=== PATIENT | female | born 1975 | race African-American/Black ===

== ENCOUNTER 2016-10-22 15:37 | Emergency (ER) | payer MEDICAID ==
[~2016-10-22] VITALS: Ht 162.6 cm; Wt 77.1 kg
[2016-10-22 15:46] VITALS: BP 111/72
[2016-10-22] MEDS ORDERED: methylPREDNISolone SOD SUCC 125 MG/2 ML VL IM ONE (16:00)
[2016-10-22] MEDS ORDERED: IPRATROPIUM BROM 0.5 MG/2.5ML INH SOL NEB ONE (16:00)
[2016-10-22] MEDS ORDERED: ALBUTEROL SULF 2.5 MG/0.5ML(0.5%) NEB SOLN NEB ONE (16:00)
== END 2016-10-22 17:45 | disposition home or self-care (01) ==
LOC: EDBD 15:37 → ER 15:42
DX: J45.901 Unspecified asthma with (acute) exacerbation (principal); F17.210 Nicotine dependence, cigarettes, uncomplicated; Z76.0 Encounter for issue of repeat prescription
CPT/HCPCS: 71010; 94644; 96372; 99285; J2930; 93005

== ENCOUNTER 2024-11-23 22:52 | Inpatient (IN) | payer MEDICAID ==
[~2024-11-23] VITALS: Ht 162.6 cm; Wt 82.9 kg
[~2024-11-23 22:52] MED LIST: ALBU108A5 IN; PRED20TA2 PO
--- NOTE | 2024-11-23 23:11 | ED.PDOC ---
GI ASSESSMENT HPI Comments 49 year old female came to ER via EMS for abdominal pain. Patient denies any history of abdominal surgeries, has regular bowel movements, last bowel movement today. Patient felt that she can still pass more stools so she took 5 laxative pills, and shortly afterwards she started having diffuse abdominal cramping pain with nausea. Chief Complaint: Abdominal Pain Time Seen by MD: 23:10 Primary Care Provider: RAQUEL Lee Notes: Emt/Paramedic Notes Allergies: Coded Allergies: NO KNOWN ALLERGIES (Unverified , 04/30/16) Home Meds Active Scripts Prednisone (Prednisone) 20 Mg Tab, 3 TAB PO DAILY for 4 Days, #12 TAB Prov:SAURAV YA MD 05/17/24 Albuterol Sulfate (Albuterol Sulfate Hfa) 108 Mcg/Act Aer, 2 PUFF IN Q6HP PRN, #1 AER Prov:SAURAV YA MD 05/17/24 Information Source: Patient, Emergency Med Personnel Mode of Arrival: EMS Timing: Minutes Duration: Since onset Prehospital treatment: None Quality: Cramping Vomitus: None Stool: Normal Severity: Moderate Recent: Other (intake of laxatives) Pain Location: Diffuse Modifying Factors: Nothing Associated sign and symptoms: Nausea, Abdominal Pain Past Medical History PAST MEDICAL HISTORY: Asthma Surgical History: Denies all surgeries SCRAP KETTLE TENDER History: No Pertinent SCRAP KETTLE TENDER History Family History Family History: Reviewed,noncontributory to illness Social History Smoker: Non-Smoker Alcohol: Denies ETOH Use Drugs: Denies Drug Use Lives In: Home Constitutional: denies: chills, diaphoresis, fatigue, fever, malaise, sweats, weakness, others EENTM: denies: blurred vision, double vision, ear bleeding, ear discharge, ear drainage, ear pain, ear ringing, eye pain, eye redness, hearing loss, mouth pain, mouth swelling, nasal discharge, nose bleeding, nose congestion, nose pain, photophobia, tearing, throat pain, throat swelling, voice changes, others Respiratory: denies: cough, hemoptysis, orthopnea, SOB at rest, shortness of breath, SOB with excertion, stridor, wheezing, others Cardiovascular: denies: chest pain, dizzy spells, diaphoresis, Dyspnea on exertion, edema, irregular heart beat, left arm pain, lightheadedness, palpitations, PND, syncope, others Gastrointestinal: reports: abdominal pain, nausea; denies: abdomen distended, blood streaked bowels, constipated, diarrhea, dysphagia, difficulty swallowing, hematemesis, melena, poor appetite, poor fluid intake, rectal bleeding, rectal pain, vomiting, others Genitourinary: denies: abnormal vagina bleeding, burning, dyspareunia, dysuria, flank pain, frequency, hematuria, incontinence, pain, , vagina discharge, urgency, others Neurological: denies: dizziness, fainting, headache, left sided numbness, left sided weakness, numbness, paresthesia, pre-existing deficit, right sided numbness, right sided weakness, seizure, speech problems, tingling, tremors, weakness, others Musculoskeletal: denies: back pain, gout, joint pain, joint swelling, muscle pain, muscle stiffness, neck pain, others Integumetry: denies: bruises, change in color, change in hair/nails, dryness, laceration, lesions, lumps, rash, wounds, others Allergic/Immunocompromised: denies: Difficulty Healing, Frequent Infections, Hives, Itching, others Hematologic/Lymphatic: denies: anemia, blood clots, easy bleeding, easy br uising, swollen glands, others Endocrine: denies: excessive hunger, excessive sweating, excessive thirst, excessive urination, flushing, intolerance to cold, intolerance to heat, unexplained weight gain, unexplained weight loss, others Psychiatric: denies: anxiety, bipolar disorder, depression, hopeless, panic disorder, schizophrenia, sleepless, suicidal, others Physical Exam General Appearance: No Apparent Distress, Normal HEENT: Normal ENT Inspection, Pharynx Normal, TMs Normal Neck: Full Range of Motion, Non-Tender, Normal, Normal Inspection Respiratory: Chest Non-Tender, Lungs Clear, No Accessory Muscle Use, No R espiratory Distress, Normal Breath Sounds Cardiovascular: No Edema, No JVD, No Murmur, No Gallop, Normal Peripheral Pulses, Regular Rate/Rhythm Breast Exam: Deferred Gastrointestinal: Diffuse, No Organomegaly, No Pulsatile Mass, Normal Bowel Sounds, Soft, Tenderness, Other (negative guarding) Genitalia: Deferred Pelvic: Deferred Rectal: Deferred Extremities: No calf tenderness, Normal capillary refill, Normal inspection, Normal range of motion, Non-tender, No pedal edema Musculoskeletal : Apperance: Normal Neurologic: Alert, telephone order clerk II-XII nml as Tested, No Motor Deficits, Normal Affect, Normal Mood, No Sensory Deficits Cerebellar Function: Normal Reflexes: Normal Skin: Dry, Normal Color, Warm Lymphatic: No Adenopathy Was a procedure done? Was a procedure done?: No GI differential Dx Differential Diagnosis: Appendicitis, Complete , Incomplete , Inevitable , Missed , Threatened , Abruptio placentae, Bowel Obstruction, Cholangitis, Cholecystitis, Constipation, Diverticular disease, Dysmenorrhea, Ectopic , Gastritis/PUD, Gastroenteritis, Hernia, Hepatitis, Inflammatory BD, Ischemic Bowel, Ovarian cyst/torsion, Pancre atitis, PID, UTI, Urolithiasis, Dehydration, Diabetes/ DKA, Electrolyte Imbalance, Food Poisoning, , Impaction, Malnutrition, Ischemic Bowel, Stress Ulcer, Kidney Stone X-Ray, Labs, Meds, VS Vital Signs Date Time Temp Pulse Resp B/P (MAP) Pulse Ox O2 Delivery O2 Flow Rate FiO2 11/23/24 23:03 98.0 75 24 132/76 (94) 98 98.0 Lab Test 11/23/24 23:12 Range/Units White Blood Count 8.2 4.4-10.8 10^3/uL Red Blood Count 4.40 4.0-5.20 10^6/uL Hemoglobin 14.3 12.2-16.2 g/dL Hematocrit 42.7 36.0-46.0 % Mean Corpuscular Volume 97.2 80.0-100.0 fL Mean Corpuscular Hemoglobin 32.5 H 28.0-32.0 pg Mean Corpuscular Hemoglobin Concent 33.5 32.0-36.0 g/dL Red Cell Distribution Width 12.2 11.8-14.3 % Platelet Count 272 140-450 10^3/uL Mean Platelet Volume 9.2 6.9-10.8 fL Neutrophils (%) (Auto) 75.8 37.0-80.0 % Lymphocytes (%) (Auto) 17.0 10.0-50.0 % Monocytes (%) (Auto) 6.4 0.0-12.0 % Eosinophils (%) (Auto) 0.4 0.0-7.0 % Basophils (%) (Auto) 0.4 0.0-2.0 % Neutrophils # (Auto) 6.2 1.6-8.6 10 ^3/uL Lymphocytes # (Auto) 1.4 0.4-5.4 10 ^3/uL Monocytes # (Auto) 0.5 0-1.3 10 ^3/uL Eosinophils # (Auto) 0 0-0.8 10 ^3/uL Basophils # (Auto) 0 0-0.2 10 ^3/uL Nucleated Red Blood Cells 0.0 % Sodium Level 140 136-145 mmol/L Potassium Level 3.6 3.5-5.1 mmol/L Chloride Level 107 98-107 mmol/L Carbon Dioxide Level 23 20-31 mmol/L Anion Gap 10 5-15 Blood Urea Nitrogen 9 9-23 mg/dL Creatinine 0.94 0.550-1.02 mg/dL Glomerular Filtration Rate Calc 75 >90 mL/min BUN/Creatinine Ratio 9.6 L 10.0-20.0 Serum Glucose 118 H 74-106 mg/dL Calcium Level 10.1 8.7-10.4 mg/dL Total Bilirubin 0.7 0.2-1.0 mg/dL Aspartate Amino Transferase (AST) 15 13-40 U/L Alanine Aminotransferase (ALT) 16 7-40 U/L Alkaline Phosphatase 65 46-116 U/L Total Protein 7.3 5.7-8.2 g/dL Albumin 4.6 3.2-4.8 g/dL Lipase 37 12-53 U/L Beta HCG, Quantitative 1.0 L 1.5-4.2 mIU/mL Exam: CT CT AB PEL WO CON-NO ORAL OR IV History: pain Comparison Study: None Technique: Multidetector spiral CT of the abdomen was performed from lung bases to pubic symphysis. Imaging was performed without IV contrast. Axial, coronal and sagittal multiplanar reformats were obtained from the axial data set by the technologist. Radiation Dose : 1. Abdomen/Pelvis: CTDIvol 12.30 mGy, DLP 660.72 mGy*cm. Findings: Evaluation of solid organs is limited due to lack of intravenous contrast use. Lung Bases: No acute or significant lung base finding. Normal heart size. No pleural or pericardial effusion. Liver: The liver is normal in size. No focal lesions. Gallbladder and Biliary Tree: Unremarkable Spleen: Unremarkable Pancreas: The pancreas is grossly normal in appearance. Adrenal Glands: Unremarkable Kidneys: Kidneys are grossly normal without calculi or hydronephrosis. Bladder: Grossly unremarkable for degree of distention. Bowel: The stomach is grossly normal in appearance. Small bowel is normal in caliber and distribution. Moderate dilatation of gas-filled proximal colon to the level of the midportion of the transverse colon. There is moderate circumferential intramural edema and wall thickening of the distal transverse colon to the level of the splenic flexure. The appendix is normal. Ascites: Absent Lymphadenopathy: No mesenteric, retroperitoneal or periportal lymphadenopathy. Abdominal Wall and Mesentery: Unremarkable. Vasculature: The visualized abdominal aorta is normal in size and caliber. Atherosclerotic vascular calcifications are noted. Evaluation of abdominal and pelvic vessels is limited due to lack of intravenous contrast. Pelvic Organs: Unremarkable. Trace likely physiologic pelvic cul-de-sac free fluid. Musculoskeletal: No aggressive focal bony lesions, acute fractures or dislocation. IMPRESSION: 1. Increased intramural thickening and edema of the distal transverse colon to the level of the splenic flexure, consistent with colitis. Radiation optimization: All CT scans at this facility use at least one of these dose optimization techniques: automated exposure control mA and/or kV adjustment per patient size (includes targeted exams where dose is matched to clinical indication) or iterative reconstruction. Time of 1ST Reevaluation: 23:02 Reevaluation 1ST: Unchanged Time of 2ND Reevaluation: 01:04 Reevaluation 2ND: Unchanged Patient Education/Counseling: Diagnosis, Treatment, Prognosis, Need For Follow Up Family Education/Counseling: No Family Present Additional Information -Reviewed patient's previous visit(s): ED physicians notes on 10/22/2016 and 05/17/2024 - The following tests were ordered, and results were reviewed by me: - Additional information was gathered from interviewing the following independe nt Historian: - I reviewed and agreed with the following test results read by other provider: - I discussed treatments and results with medical personnel and: patient Comprehensive systems review obtained and negative except for what is stated in the HPI. Departure 1 Departure Time of Disposition: 01:06 Impression: Primary Impression: Abdominal pain Qualified Codes: R10.84 - Generalized abdominal pain Additional Impression: Colitis Disposition: ADMITTED INPATIENT Admit to: Med Surg Condition: Stable Discharged With: Self Critical Care Note Critical Care Time?: Yes (55 min-critical care time only) Critical care comment: due to concerns for patient's condition deteriorating, the care required my highest level of attention and readiness to intervene. i assessed the patient's condition, ordered the proper tests and treatments, reassessed for response and reviewed the results. i communicated with medical personnel and formulated a plan of care. total critical care time does not include any procedures Stability Stability form required: No Heart Score Heart Score: Heart Score Response (Comments) Value History N/A 0 EKG N/A 0 Age N/A 0 Risk Factors N/A 0 Troponin N/A 0 Total 0 I personally scribed for CHRISTINE DOW MD ([email or web address]) on 11/23/24 at 23:11. Electronically submitted by Shaun Greene ([email or web address]). I personally scribed for CHRISTINE DOW MD ([email or web address]) on 11/24/24 at 00:24. Electronically submitted by Shaun Greene ([email or web address]). CHRISTINE DOW MD Nov 23, 2024 23:11
[2024-11-23 23:35] LABS: Basophils # (auto) 0 10 ^3/uL (0-0.2); Basophils % (auto) 0.4 % (0.0-2.0); Eosinophils # (auto) 0 10 ^3/uL (0-0.8); Eosinophils % (auto) 0.4 % (0.0-7.0); Hematocrit 42.7 % (36.0-46.0); Hemoglobin 14.3 g/dL (12.2-16.2); Lymphocytes # (auto) 1.4 10 ^3/uL (0.4-5.4); Mean Corpuscular Hemoglobin 32.5 pg (28.0-32.0); Mean Corpuscular Hgb Conc. 33.5 g/dL (32.0-36.0); Mean Corpuscular Volume 97.2 fL (80.0-100.0); Monocytes # (auto) 0.5 10 ^3/uL (0-1.3); Monocytes % (auto) 6.4 % (0.0-12.0); Neutrophils # (auto) 6.2 10 ^3/uL (1.6-8.6); Neutrophils % (auto) 75.8 % (37.0-80.0); Platelet Count (auto) 272 10^3/uL (140-450); Red Cell Distribution Width 12.2 % (11.8-14.3); White Blood Cell 8.2 10^3/uL (4.4-10.8)
[2024-11-23 23:59] LABS: Alanine Aminotransferase 16 U/L (7-40); Albumin 4.6 g/dL (3.2-4.8); Alkaline Phosphatase 65 U/L (46-116); Anion Gap 10 (5-15); Aspartate Aminotransferase 15 U/L (13-40); BUN/Creatinine Ratio 9.6 (10.0-20.0); Bilirubin, Total 0.7 mg/dL (0.2-1.0); Blood Urea Nitrogen 9 mg/dL (9-23); Calcium 10.1 mg/dL (8.7-10.4); Carbon Dioxide 23 mmol/L (20-31); Lipase 37 U/L (12-53); Potassium 3.6 mmol/L (3.5-5.1); Sodium 140 mmol/L (136-145); Total Protein 7.3 g/dL (5.7-8.2)
[2024-11-24] VITALS (7 sets, daily range): BP systolic 98–111; BP diastolic 47–61; PULSE 60–68; RESP 17–20; TEMP 98.1–98.3; O2SAT 97–100
--- NOTE | 2024-11-24 00:04 | DVH ---
Exam: CT CT AB PEL WO CON-NO ORAL OR IV History: pain Comparison Study: None Technique: Multidetector spiral CT of the abdomen was performed from lung bases to pubic symphysis. I maging was performed without IV contrast. Axial, coronal and sagittal multiplanar reformats were obta ined from the axial data set by the technologist. Radiation Dose : 1. Abdomen/Pelvis: CTDIvol 12.30 mGy, DLP 660.72 mGy*cm. Findings: Evaluation of solid organs is limited due to lack of intravenous contrast use. Lung Bases: No acute or significant lung base finding. Normal heart size. No pleural or pericardial effusion. Liver: The liver is normal in size. No focal lesions. Gallbladder and Biliary Tree: Unremarkable Spleen: Unremarkable Pancreas: The pancreas is grossly normal in appearance. Adrenal Glands: Unremarkable Kidneys: Kidneys are grossly normal without calculi or hydronephrosis. Bladder: Grossly unremarkable for degree of distention. Bowel: The stomach is grossly normal in appearance. Small bowel is normal in caliber and distribution . Moderate dilatation of gas-filled proximal colon to the level of the midportion of the transverse c olon. There is moderate circumferential intramural edema and wall thickening of the distal transverse colon to the level of the splenic flexure. The appendix is normal. Ascites: Absent Lymphadenopathy: No mesenteric, retroperitoneal or periportal lymphadenopathy. Abdominal Wall and Mesentery: Unremarkable. Vasculature: The visualized abdominal aorta is normal in size and caliber. Atherosclerotic vascular c alcifications are noted. Evaluation of abdominal and pelvic vessels is limited due to lack of intrav enous contrast. Pelvic Organs: Unremarkable. Trace likely physiologic pelvic cul-de-sac free fluid. Musculoskeletal: No aggressive focal bony lesions, acute fractures or dislocation. IMPRESSION: 1. Increased intramural thickening and edema of the distal transverse colon to the level of the splen ic flexure, consistent with colitis. Radiation optimization: All CT scans at this facility use at least one of these dose optimization marilyn hniques: automated exposure control mA and/or kV adjustment per patient size (includes targeted exam s where dose is matched to clinical indication) or iterative reconstruction.
[2024-11-24 00:09] LABS: Chloride 107 mmol/L (98-107); Glucose 118 mg/dL (74-106)
[2024-11-24] MEDS ORDERED: ONDANSETRON HCL 4 MG/2 ML VIAL IV PRN (01:30)
[2024-11-24] MEDS ORDERED: MORPHINE SULFATE INJ 2 MG/ml SYRG IV PRN (01:30)
[2024-11-24] MEDS: SODIUM CHLORIDE 0.9% 1,000 ML IV SCH (01:30)
--- NOTE | 2024-11-24 01:36 | DVHHP2 ---
Admitting Diagnosis: Acute Colitis, Abdominal pain History of Present Illness History Source: Patient Exam Limitations: No limitations HPI Mrs. Kiran Beach is a 49 year old female who presents with a chief complaint of abdominal pain. Patient denies any history of abdominal surgeries, has regular bowel movements, last bowel movement today. Patient felt that she can still pass more stools so she took 5 laxative pills, and shortly afterwards she started having diffuse abdominal cramping pain with nausea. Patient admitted for further evaluation. Home Meds Active Scripts Prednisone (Prednisone) 20 Mg Tab, 3 TAB PO DAILY for 4 Days, #12 TAB Prov:SAURAV YA MD 05/17/24 Albuterol Sulfate (Albuterol Sulfate Hfa) 108 Mcg/Act Aer, 2 PUFF IN Q6HP PRN, #1 AER Prov:SAURAV YA MD 05/17/24 Reported Medications Albuterol Sulfate (Albuterol Sulfate) 0.083 % Neb, 3 ML QID PRN for wheezing 11/24/24 Past Medical History Cardiac: No pertinent Hx Pulmonary: Asthma Central Nervous System: No pertinent Hx GI: No pertinent Hx Hemotology/Oncology: No pertinent Hx Hepatobiliary: No pertinent Hx Psychiatric: No pertinent Hx Musculoskeletal: No pertinent Hx Rheumotologic: No pertinent Hx Infectious Disease: No peritnent Hx ENT: No pertinent Hx Renal/: No pertinent Hx Endocrine: No pertinent Hx Dermatology: No pertinent Hx Review of Systems Constitutional: No symptom reported Ears, Nose, & Throat: No symptom reported Eyes: No symptom reported Pulmonary/Respiratory: No symptom reported Cardiovascular: No symptom reported Gastrointestinal: Abdominal Pain Genitourinary: No symptom reported Musculoskeletal: No symptom reported Skin: No symptom reported Psychiatric: No symptom reported Endocrine: No symptom reported Hemotologic/Lymphatic: No symptom reported H&P Exam Vital Signs Vital Signs Date Time Temp Pulse Resp B/P (MAP) Pulse Ox O2 Delivery O2 Flow Rate FiO2 11/23/24 23:03 98.0 75 24 132/76 (94) 98 98.0 General Appeara: Well developed, Well nourished, Normal Appearance Head Exam: Normal inspection Neck Exam: Normal inspection, Non-tender, Normal alignment Eye Exam: bilateral eye Normal inspection, bilateral eye PERRL, bilateral eye EOMI Ear Exam: bilateral ear Auricle normal Nasal Exam: Normal inspection Mouth: Normal Inspection Pulmonary/Respiratory: Normal inspection, Normal breath sounds, Chest non- tender, Lungs clear Cardiovascular/Chest: Normal inspection, Regular rate, Normal Rhythm Peripheral Pulses: 2+ dorsalis pedis (R), 2+ dorsalis pedis (L), 2+ Radial (R), 2+ Radial (L) Abdominal Exam: Normal bowel sounds, Soft, No tenderness Abdominal Pain Onset Location: Generalized abdomen Rectal Exam: Deferred QUALITY CONTROL TESTER Exam: Normal hearing, Normal speech, PERRL Neuro/Mental St: Alert, Oriented Appearance: Appropriate appearance, Appropriate insight Eye contact/ Speech: Cooperative, Good eye contact, Normal speech Thoughts/Psych: Normal thought pattern Skin Exam: Normal inspection, Normal color, Warm/dry Labs/Xrays Labs Test 11/23/24 23:12 Range/Units White Blood Count 8.2 4.4-10.8 10^3/uL Red Blood Count 4.40 4.0-5.20 10^6/uL Hemoglobin 14.3 12.2-16.2 g/dL Hematocrit 42.7 36.0-46.0 % Mean Corpuscular Volume 97.2 80.0-100.0 fL Mean Corpuscular Hemoglobin 32.5 H 28.0-32.0 pg Mean Corpuscular Hemoglobin Concent 33.5 32.0-36.0 g/dL Red Cell Distribution Width 12.2 11.8-14.3 % Platelet Count 272 140-450 10^3/uL Mean Platelet Volume 9.2 6.9-10.8 fL Neutrophils (%) (Auto) 75.8 37.0-80.0 % Lymphocytes (%) (Auto) 17.0 10.0-50.0 % Monocytes (%) (Auto) 6.4 0.0-12.0 % Eosinophils (%) (Auto) 0.4 0.0-7.0 % Basophils (%) (Auto) 0.4 0.0-2.0 % Neutrophils # (Auto) 6.2 1.6-8.6 10 ^3/uL Lymphocytes # (Auto) 1.4 0.4-5.4 10 ^3/uL Monocytes # (Auto) 0.5 0-1.3 10 ^3/uL Eosinophils # (Auto) 0 0-0.8 10 ^3/uL Basophils # (Auto) 0 0-0.2 10 ^3/uL Nucleated Red Blood Cells 0.0 % Sodium Level 140 136-145 mmol/L Potassium Level 3.6 3.5-5.1 mmol/L Chloride Level 107 98-107 mmol/L Carbon Dioxide Level 23 20-31 mmol/L Anion Gap 10 5-15 Blood Urea Nitrogen 9 9-23 mg/dL Creatinine 0.94 0.550-1.02 mg/dL Glomerular Filtration Rate Calc 75 >90 mL/min BUN/Creatinine Ratio 9.6 L 10.0-20.0 Serum Glucose 118 H 74-106 mg/dL Calcium Level 10.1 8.7-10.4 mg/dL Total Bilirubin 0.7 0.2-1.0 mg/dL Aspartate Amino Transferase (AST) 15 13-40 U/L Alanine Aminotransferase (ALT) 16 7-40 U/L Alkaline Phosphatase 65 46-116 U/L Total Protein 7.3 5.7-8.2 g/dL Albumin 4.6 3.2-4.8 g/dL Lipase 37 12-53 U/L Beta HCG, Quantitative 1.0 L 1.5-4.2 mIU/mL Assessment/Plan Problem List: (1) Colitis (2) Abdominal pain Plan This is a 49 year old female with known history of asthma who presents with abdominal pain. Patient found to have 1. Acute Colitis 2. Abdominal Pain 3. Hx of asthma plan Admit Med Surgical unit Gastroenterology consultation IV antibiotics IV fluids NPO Antiemetics/analgesics as needed Discussed all above with patient who verbalizes agreement and understanding of care plan. All questions were answered. Discussed with supervising MD. Plan discussed with: Patient, Other Code Visit Code Visit Total Time (mins): 45 Additional Comments Additional Comments Additional Comments 49-year-old female with a known history of asthma presented to the hospital with the abdominal pain found to have 1. Acute transverse colon colitis 2. Abdominal pain secondary to 1. 3. Chronic asthma -clear liquid diet, IV antibiotics, GI consultation. GATO DIEZ Nov 24, 2024 01:36 SHYANNE ALATORRE MD Nov 24, 2024 15:00
[2024-11-24] MEDS: fentaNYL CITRATE 100 MCG/2 ML VL IV ONE (01:55)
[2024-11-24] MEDS: ONDANSETRON HCL 4 MG/2 ML VIAL IV ONE (01:55)
[2024-11-24] MEDS: SODIUM CHLORIDE 0.9% 1,000 ML IV ONE (01:56)
[2024-11-24] MEDS: levoFLOXacin 500MG 100 ML IV ONE (02:18)
[2024-11-24 02:26] LABS: Urine Bacteria MANY /hpf (None Seen); Urine Blood TRACE /uL (Negative); Urine Clarity Turbid (Clear); Urine Color Light-Yellow (Yellow); Urine Hyaline Cast FEW /lpf (0 - 2); Urine Mucus FEW (None Seen); Urine Protein, UAD Negative (Negative); Urine Specific Gravity 1.019 (1.001-1.035); Urine Squamous Epithelial Cell FEW /hpf (<5); Urine Urobilinogen Normal (Negative); Urine WBC 78 /HPF (0-5)
[2024-11-24] MEDS ORDERED: ALBU0.08 (05:28)
[2024-11-24] MEDS: metroNIDAZOLE 500MG/100ML 100 ML IV SCH (05:29)
[2024-11-24] MEDS: ENOXAPARIN SOD 40 MG/0.4 ML SYRINGE SC SCH (09:23)
[2024-11-24] MEDS: PANTOPRAZOLE 40 MG/10 ML VIAL INJ IV SCH (09:23)
[2024-11-24] MEDS: HYDROcodone-ACET 5/325MG TAB PO PRN (09:25)
[2024-11-24] MEDS ORDERED: levoFLOXacin 500MG 100 ML IV SCH (10:00)
[2024-11-24 11:57] LABS: Basophils # (auto) 0.1 10 ^3/uL (0-0.2); Basophils % (auto) 0.8 % (0.0-2.0); Eosinophils # (auto) 0.1 10 ^3/uL (0-0.8); Eosinophils % (auto) 1.2 % (0.0-7.0); Hematocrit 39.4 % (36.0-46.0); Hemoglobin 13.1 g/dL (12.2-16.2); Lymphocytes # (auto) 2.4 10 ^3/uL (0.4-5.4); Lymphocytes % (auto) 35.8 % (10.0-50.0); Mean Corpuscular Hemoglobin 32.6 pg (28.0-32.0); Mean Corpuscular Hgb Conc. 33.4 g/dL (32.0-36.0); Mean Corpuscular Volume 97.6 fL (80.0-100.0); Monocytes # (auto) 0.5 10 ^3/uL (0-1.3); Neutrophils # (auto) 3.7 10 ^3/uL (1.6-8.6); Neutrophils % (auto) 54.2 % (37.0-80.0); Nucleated Red Blood Cells % 0.1 %; Platelet Count (auto) 257 10^3/uL (140-450); Red Blood Cells 4.03 10^6/uL (4.0-5.20); Red Cell Distribution Width 12.4 % (11.8-14.3); White Blood Cell 6.8 10^3/uL (4.4-10.8)
[2024-11-24 12:04] LABS: Chloride 107 mmol/L (98-107); Sodium 139 mmol/L (136-145)
[2024-11-24 12:05] LABS: Anion Gap 8 (5-15); Carbon Dioxide 24 mmol/L (20-31)
[2024-11-24 12:06] LABS: Calcium 9.1 mg/dL (8.7-10.4); Potassium 3.5 mmol/L (3.5-5.1)
[2024-11-24 12:10] LABS: BUN/Creatinine Ratio 7.8 (10.0-20.0); Glucose 82 mg/dL (74-106)
[2024-11-24 12:14] LABS: Blood Urea Nitrogen 7 mg/dL (9-23)
[2024-11-24] MEDS: POLYETHYLENE GLYCOL 17 GM PWDR PO ONE ×2 (16:08→16:51)
--- NOTE | 2024-11-24 22:07 | DVHINCON2 ---
Date of service: Nov 24, 2024 Referring Physician Jayla Yarbrough Reason for Consultation Abdominal pain possible colitis History of Present Illness Mrs. Kiran Beach is a 49 year old female who presents with a chief complaint of abdominal pain. Patient denies any history of abdominal owen rgeries, has regular bowel movements, last bowel movement yesterday morning. Patient felt that she can still pass more stools so she took 5 laxative pills, and shortly afterwards she started having diffuse abdominal cramping pain with nausea. Patient admitted for further evaluation. Patient is feeling better and abdominal pain is improving. Patient is tolerating a clear liquid diet. She denied any GI bleeding. She has not had any. CT scan was suggestive of mild colitis in the watershed area. She denied any bowel movement or rectal bleeding at this time Family History: Patient reports no known family medical history. Allergies: Coded Allergies: NO KNOWN ALLERGIES (Unverified , 04/30/16) Home Meds Active Scripts Prednisone (Prednisone) 20 Mg Tab, 3 TAB PO DAILY for 4 Days, #12 TAB Prov:SAURAV YA MD 05/17/24 Albuterol Sulfate (Albuterol Sulfate Hfa) 108 Mcg/Act Aer, 2 PUFF IN Q6HP PRN, #1 AER Prov:SAURAV YA MD 05/17/24 Reported Medications Albuterol Sulfate (Albuterol Sulfate) 0.083 % Neb, 3 ML QID PRN for wheezing 11/24/24 Current Medications Current Medications Medications (Trade) Dose Ordered Sig/Forrest Route PRN Reason Start Time Stop Time Status Last Admin Ondansetron HCl (Zofran) 4 mg Q6HPRN PRN IV NAUSEA / VOMITING 11/24/24 01:30 Morphine Sulfate 2 mg Q6HP PRN IV PAIN SCALE 7 THRU 10 11/24/24 01:30 Pantoprazole Sodium (Protonix) 40 mg DAILY IV 11/24/24 10:00 11/24/24 09:23 Acetaminophen (Tylenol Tablet) 650 mg Q6HPRN PRN PO PAIN SCALE 1-3 OR TEMP>100.4 11/24/24 01:30 Acetaminophen/ Hydrocodone Bitart (Milmay 5/325MG Tab) 1 tab Q6HPRN PRN PO PAIN SCALE 1 THRU 6 11/24/24 01:30 11/24/24 16:07 Metronidazole 100 ml @ 100 mls/hr Q8HR IV 11/24/24 06:00 11/24/24 21:16 Levofloxacin/ Dextrose 100 ml @ 100 mls/hr DAILY IV 11/24/24 10:00 11/24/24 01:41 DC Enoxaparin Sodium (Lovenox) 40 mg DAILY SC 11/24/24 10:00 11/24/24 09:23 Sodium Chloride 1,000 ml @ 100 mls/hr Q10H IV 11/24/24 01:30 11/24/24 13:32 Levofloxacin/ Dextrose 100 ml @ 100 mls/hr DAILY IV 11/25/24 10:00 Vital Signs Vital Signs Date Time Temp Pulse Resp B/P (MAP) Pulse Ox O2 Delivery O2 Flow Rate FiO2 11/24/24 20:00 Room Air* 0 21 11/24/24 17:00 98.3 60 18 111/59 (76) 100 98.3 Physical Exam General Appeara: Well developed, Well nourished, Normal Appearance Head Exam: Normal inspection; Neck Exam: Normal inspection, Non-tender, Normal alignment Pulmonary/Respiratory: Normal inspection, Normal breath sounds, Chest non-tende r, Lungs clear Cardiovascular/Chest: Normal inspection, Regular rate, Normal Rhythm Abdominal Exam: Normal bowel sounds, Soft, No tenderness;obese [employer] Exam: Normal hearing, Normal speech, PERRL Neuro/Mental St: Alert, Oriented Labs/Diagnostic Data Labs Test 11/24/24 11:29 11/24/24 01:53 11/24/24 01:40 11/23/24 23:12 Range/Units White Blood Count 6.8 4.4-10.8 10^3/uL Red Blood Count 4.03 4.0-5.20 10^6/uL Hemoglobin 13.1 12.2-16.2 g/dL Hematocrit 39.4 36.0-46.0 % Mean Corpuscular Volume 97.6 80.0-100.0 fL Mean Corpuscular Hemoglobin 32.6 H 28.0-32.0 pg Mean Corpuscular Hemoglobin Concent 33.4 32.0-36.0 g/dL Red Cell Distribution Width 12.4 11.8-14.3 % Platelet Count 257 140-450 10^3/uL Mean Platelet Volume 9.1 6.9-10.8 fL Neutrophils (%) (Auto) 54.2 37.0-80.0 % Lymphocytes (%) (Auto) 35.8 10.0-50.0 % Monocytes (%) (Auto) 8.0 0.0-12.0 % Eosinophils (%) (Auto) 1.2 0.0-7.0 % Basophils (%) (Auto) 0.8 0.0-2.0 % Neutrophils # (Auto) 3.7 1.6-8.6 10 ^3/uL Lymphocytes # (Auto) 2.4 0.4-5.4 10 ^3/uL Monocytes # (Auto) 0.5 0-1.3 10 ^3/uL Eosinophils # (Auto) 0.1 0-0.8 10 ^3/uL Basophils # (Auto) 0.1 0-0.2 10 ^3/uL Nucleated Red Blood Cells 0.1 % Sodium Level 139 136-145 mmol/L Potassium Level 3.5 3.5-5.1 mmol/L Chloride Level 107 98-107 mmol/L Carbon Dioxide Level 24 20-31 mmol/L Anion Gap 8 5-15 Blood Urea Nitrogen 7 L 9-23 mg/dL Creatinine 0.90 0.550-1.02 mg/dL Glomerular Filtration Rate Calc 79 >90 mL/min BUN/Creatinine Ratio 7.8 L 10.0-20.0 Serum Glucose 82 74-106 mg/dL Calcium Level 9.1 8.7-10.4 mg/dL Lactic Acid Level 0.9 0.4-2.0 mmol/L Urine Color Light-yellow Yellow Urine Clarity Turbid H Clear Urine pH 8.0 5.0-9.0 Urine Specific [place] 1.019 1.001-1.035 Urine Protein Negative Negative Urine Ketones Negative Negative Urine Blood Trace H Negative /uL Urine Nitrite Negative Negative Urine Bilirubin Negative Negative Urine Urobilinogen Normal Negative mg/dL Urine Leukocyte Esterase 3+ Negative /uL Urine RBC 8 0 - 4 /hpf Urine Microscopic WBC 78 H 0-5 /HPF Urine Squamous Epithelial Cells Few <5 /hpf Urine Renal Epithelial Cells Few None Seen /hpf Urine Bacteria Many H None Seen /hpf Urine Hyaline Casts Few 0 - 2 /lpf Urine Mucus Few None Seen Urine Glucose Normal Normal mg/dL Total Bilirubin 0.7 0.2-1.0 mg/dL Aspartate Amino Transferase (AST) 15 13-40 U/L Alanine Aminotransferase (ALT) 16 7-40 U/L Alkaline Phosphatase 65 46-116 U/L Total Protein 7.3 5.7-8.2 g/dL Albumin 4.6 3.2-4.8 g/dL Lipase 37 12-53 U/L Beta HCG, Quantitative 1.0 L 1.5-4.2 mIU/mL CY SCAN ABD PELVIS IMPRESSION: 1. Increased intramural thickening and edema of the distal transverse colon to the level of the splenic flexure, consistent with colitis. Problems(with codes): (1) UTI (urinary tract infection) (2) Abdominal pain (3) Colitis Plan/Recommendation Plan Check urine bacterial culture Continue IV antibiotics for UTI Abnormal finding CT abdomen likely related to mild ischemic colitis of the watershed area There was no clinical symptoms of diarrhea or rectal bleeding at this time Advance diet as tolerated Patient is getting a dose of MiraLax She can be maintained on stool softeners She was advised to follow up in my office as an outpatient for elective colon oscopy Once again thank you for allowing me to participate in the care of this patient Plan discussed with: Patient, Other (Nurse) DAVID DENNIS MD Nov 24, 2024 22:07
[2024-11-25 01:00] VITALS: BP 99/50; PULSE 61; RESP 19; TEMP 98.4; O2SAT 96
[2024-11-25 05:00] VITALS: BP 97/49; PULSE 74; RESP 20; TEMP 98.3; O2SAT 99
[2024-11-25] MEDS: ACETAMINOPHEN 325 MG TAB PO PRN (05:07)
[2024-11-25 06:13] LABS: Anion Gap 7 (5-15); Calcium 8.9 mg/dL (8.7-10.4); Carbon Dioxide 22 mmol/L (20-31); Potassium 3.9 mmol/L (3.5-5.1); Sodium 141 mmol/L (136-145)
[2024-11-25 06:18] LABS: Chloride 112 mmol/L (98-107); Glucose 78 mg/dL (74-106)
[2024-11-25 06:19] LABS: BUN/Creatinine Ratio 7.9 (10.0-20.0); Blood Urea Nitrogen 7 mg/dL (9-23)
[2024-11-25 06:22] LABS: Basophils # (auto) 0.1 10 ^3/uL (0-0.2); Basophils % (auto) 1.2 % (0.0-2.0); Eosinophils # (auto) 0.1 10 ^3/uL (0-0.8); Eosinophils % (auto) 2.1 % (0.0-7.0); Hematocrit 36.8 % (36.0-46.0); Hemoglobin 12.5 g/dL (12.2-16.2); Lymphocytes # (auto) 2.7 10 ^3/uL (0.4-5.4); Mean Corpuscular Hemoglobin 32.9 pg (28.0-32.0); Mean Corpuscular Hgb Conc. 33.8 g/dL (32.0-36.0); Mean Corpuscular Volume 97.3 fL (80.0-100.0); Monocytes # (auto) 0.5 10 ^3/uL (0-1.3); Monocytes % (auto) 8.3 % (0.0-12.0); Neutrophils # (auto) 2.2 10 ^3/uL (1.6-8.6); Neutrophils % (auto) 39.4 % (37.0-80.0); Nucleated Red Blood Cells % 0.1 %; Platelet Count (auto) 227 10^3/uL (140-450); Red Blood Cells 3.79 10^6/uL (4.0-5.20); Red Cell Distribution Width 12.3 % (11.8-14.3); White Blood Cell 5.6 10^3/uL (4.4-10.8)
[2024-11-25 09:00] VITALS: BP 109/56; PULSE 60; RESP 16; TEMP 98.1; O2SAT 98
[2024-11-25] MEDS: levoFLOXacin 500MG 100 ML IV SCH (09:12)
[2024-11-25 13:00] VITALS: BP 102/57; PULSE 64; RESP 18; TEMP 98.1; O2SAT 99
[2024-11-25] MEDS ORDERED: AUG875T PO (16:09)
--- NOTE | 2024-11-25 16:13 | DVHDS2 ---
Discharge Summary Date of Admission Nov 24, 2024 at 01:26 Date of Discharge: Nov 25, 2024 Labs/Diagnostic Data: Laboratory Results Test 11/25/24 05:22 11/24/24 01:53 11/24/24 01:40 11/23/24 23:12 White Blood Count 5.6 10^3/uL (4.4-10.8) Red Blood Count 3.79 10^6/uL (4.0-5.20) Hemoglobin 12.5 g/dL (12.2-16.2) Hematocrit 36.8 % (36.0-46.0) Mean Corpuscular Volume 97.3 fL (80.0-100.0) Mean Corpuscular Hemoglobin 32.9 pg (28.0-32.0) Mean Corpuscular Hemoglobin Concent 33.8 g/dL (32.0-36.0) Red Cell Distribution Width 12.3 % (11.8-14.3) Platelet Count 227 10^3/uL (140-450) Mean Platelet Volume 9.3 fL (6.9-10.8) Neutrophils (%) (Auto) 39.4 % (37.0-80.0) Lymphocytes (%) (Auto) 49.0 % (10.0-50.0) Monocytes (%) (Auto) 8.3 % (0.0-12.0) Eosinophils (%) (Auto) 2.1 % (0.0-7.0) Basophils (%) (Auto) 1.2 % (0.0-2.0) Neutrophils # (Auto) 2.2 10 ^3/uL (1.6-8.6) Lymphocytes # (Auto) 2.7 10 ^3/uL (0.4-5.4) Monocytes # (Auto) 0.5 10 ^3/uL (0-1.3) Eosinophils # (Auto) 0.1 10 ^3/uL (0-0.8) Basophils # (Auto) 0.1 10 ^3/uL (0-0.2) Nucleated Red Blood Cells 0.1 % Sodium Level 141 mmol/L (136-145) Potassium Level 3.9 mmol/L (3.5-5.1) Chloride Level 112 mmol/L (98-107) Carbon Dioxide Level 22 mmol/L (20-31) Anion Gap 7 (5-15) Blood Urea Nitrogen 7 mg/dL (9-23) Creatinine 0.89 mg/dL (0.550-1.02) Glomerular Filtration Rate Calc 80 mL/min (>90) BUN/Creatinine Ratio 7.9 (10.0-20.0) Serum Glucose 78 mg/dL (74-106) Calcium Level 8.9 mg/dL (8.7-10.4) Lactic Acid Level 0.9 mmol/L (0.4-2.0) Urine Color Light-yellow (Yellow) Urine Clarity Turbid (Clear) Urine pH 8.0 (5.0-9.0) Urine Specific [place] 1.019 (1.001-1.035) Urine Protein Negative (Negative) Urine Ketones Negative (Negative) Urine Blood Trace /uL (Negative) Urine Nitrite Negative (Negative) Urine Bilirubin Negative (Negative) Urine Urobilinogen Normal mg/dL (Negative) Urine Leukocyte Esterase 3+ /uL (Negative) Urine RBC 8 /hpf (0 - 4) Urine Microscopic WBC 78 /HPF (0-5) Urine Squamous Epithelial Cells Few /hpf (<5) Urine Renal Epithelial Cells Few /hpf (None Seen) Urine Bacteria Many /hpf (None Seen) Urine Hyaline Casts Few /lpf (0 - 2) Urine Mucus Few (None Seen) Urine Glucose Normal mg/dL (Normal) Total Bilirubin 0.7 mg/dL (0.2-1.0) Aspartate Amino Transferase (AST) 15 U/L (13-40) Alanine Aminotransferase (ALT) 16 U/L (7-40) Alkaline Phosphatase 65 U/L (46-116) Total Protein 7.3 g/dL (5.7-8.2) Albumin 4.6 g/dL (3.2-4.8) Lipase 37 U/L (12-53) Beta HCG, Quantitative 1.0 mIU/mL (1.5-4.2) Other Laboratory Tests 11/25/24 05:22 Brief Hx & Hospital Course: 49-year-old female with a known history of asthma presented to the hospital with the abdominal pain found to have acute transverse colon colitis. Patient was admitted started on IV antibiotics GI was consulted. Patient is currently tolerating diet and denies any abdominal pain. Patient is being discharged under stable condition with close follow up as an outpatient with the GI. Condition at Discharge: Stable Final Diagnosis/Problems List 49-year-old female with a known history of asthma presented to the hospital with the abdominal pain found to have 1. Acute transverse colon colitis 2. Abdominal pain secondary to 1. 3. Chronic asthma Discharge Disposition: Home SNF Discharge Will this Physician continue t: No Discharge Instruct/Medications Diet: Regular Activity: No Restrictions, As Tolerated Follow Up/Referral: Follow up with the PCP in 1-2 weeks Follow up with GI Dr. Yolanda Oliva in 1-2 weeks Medications: Augmentin as prescribed. Discharge Statement: "Patient was advised to return to the ER or call 911 if any headaches, dizziness, shortness of breath, chest pain, abdominal pain, bleeding, fevers, or worsening of medical condition. Patient was counseled about treatment plan, medications, possible side effects, patientverbalized understanding. All questions were answered to the best of my ability. This discharge took greater then 30 minutes in planning, reviewing documentation, counseling the patient, and discussing with other team members." ASSESSMENT ASSESSMENT Assessment 49-year-old female with a known history of asthma presented to the hospital with the abdominal pain found to have 1. Acute transverse colon colitis 2. Abdominal pain secondary to 1. 3. Chronic asthma Date of Service: Nov 25, 2024 Billing Provider: SHYANNE ALATORRE MD Common Visit Codes: NOT BILLABLE SHYANNE ALATORRE MD Nov 25, 2024 16:13
[2024-11-25 17:00] VITALS: BP 123/70; PULSE 61
== END 2024-11-25 17:10 | disposition home or self-care (01) | DRG 246 ==
LOC: ER 22:52 → EDBD 22:52 → OVERFLOW 11-24 01:26 → WEST WING 11-24 04:55
PROVIDERS: ADMIT Nurse Practitioner Family; ATTEND Nurse Practitioner Family
DX: K55.9 Vascular disorder of intestine, unspecified (principal); J45.909 Unspecified asthma, uncomplicated; N30.00 Acute cystitis without hematuria; Z79.899 Other long term (current) drug therapy
CPT/HCPCS: 36415; 74176; 80048; 80053; 81001; 83605; 83690; 84702; 85025; 96361; 96374; 96375; 99291; G0378; J1956; J2405; J2470; J3490